=== PATIENT | male | born 1980 | race Caucasian/White ===

== ENCOUNTER 2022-11-10 14:15 | Emergency (ER) | payer SELFPAY ==
--- NOTE | ~2022-11-10 | XR_ITS ---
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 Findings: No fracture, subluxation or dislocation. There is soft tissue laceration just lateral to th e radius distally. No foreign body. Impression: 1: No acute bone or joint abnormality. Reviewed, dictated and finalized at location L. R FEEDER Impression: 1: No acute bone or joint abnormality.
[2022-11-10 15:00] VITALS: BP 146/92; PULSE 89; RESP 18; TEMP 36.6; O2SAT 100
--- NOTE | 2022-11-10 15:46 | ED.WOUNDLAC ---
HPI - Wound/Laceration General Chief Complaint: Wound/Laceration Stated Complaint: wrist lac Time Seen by Provider: 11/10/22 15:34 History of Present Illness HPI narrative: 42-year-old male here for evaluation of a laceration sustained to his left wrist about an hour prior to arrival. Patient states that he was cutting a piece of metal with a circular saw when he lost control of the tool and the tool sliced his wrist. He is unsure of his last tetanus shot. He denies any difficulty moving his fingers or his wrist but he does note some numbness and tingling at the base of his thumb. Related Data Allergies Allergy/AdvReac Type Severity Reaction Status Date / Time No Known Allergies Allergy Unverified 01/09/15 08:41 Review of Systems Review of Systems: Gen: Denies fevers or chills Eyes: Denies eye pain or visual change ENT: Denies congestion Respiratory: Denies shortness of breath or cough CV: Denies chest pain or palpitations GI: Denies abdominal pain nausea, emesis or diarrhea : denies burning, urgency, frequency or hematuria Musculoskeletal: Denies back pain or muscle pain Neuro: Denies numbness, tingling, weakness or focal weakness Skin: Reports laceration to wrist. Except as documented, all other systems reviewed and negative Exam Narrative: APPEARANCE: Well appearing, no pain in distress, well-nourished. Head: Normocephalic and atraumatic. EYES: PERRLA/EOMI, conjunctivae clear NOSE: No nasal drainage EARS: External ear normal in appearance THROAT: Oropharynx is clear. Mucous membranes are moist. NECK: Supple. No adenopathy, no masses. RESPIRATORY: Airway patent, respirations nonlabored. Clear to auscultation bilaterally, no rales, rhonchi, wheezing. CARDIOVASCULAR: 2+ radial pulses. Regular rate and rhythm without murmurs, rubs, or gallops. ABDOMINAL: Normoactive bowel sounds. Soft, nontender, nondistended. No rebound tenderness or guarding. MUSCULOSKELETAL: He has full range of motion in his thumbs and his fingers. He has brisk capillary refill. He has decreased sensation to the thenar eminence and reports decreased sensation to the tissue surrounding the laceration. NEURO: Normal speech. No focal neurologic deficits. SKIN: Patient has a 2 cm irregular laceration to the anterior aspect of his left wrist with no active bleeding. There is black debris noted around the wound PSYCHIATRIC: Normal affect/mood.. Course Vital Signs Vital signs: Vital Signs Temperature 98 F 11/10/22 15:00 Pulse Rate 89 11/10/22 15:00 Respiratory Rate 18 11/10/22 15:00 Blood Pressure 146/92 H 11/10/22 15:00 Pulse Oximetry 100 11/10/22 15:00 Oxygen Delivery Room Air 11/10/22 15:00 Temperature 98 F 11/10/22 15:00 Pulse Rate 89 11/10/22 15:00 Respiratory Rate 18 11/10/22 15:00 Blood Pressure 146/92 H 11/10/22 15:00 Pulse Oximetry 100 11/10/22 15:00 Oxygen Delivery Room Air 11/10/22 15:00 Procedures Laceration Laceration 1: Date: 11/10/22 Time: 17:24 Site: upper extremity Side (If applicable): left Size (cm): 2 Description: irregular and contaminated Depth: simple, single layer Local Anesthetic: lidocaine 1% Amount of anesthesia used (mL): 2 Pre-repair: wound explored, irrigated, irrigated extensively and minor debridement ====== Skin Level ====== Skin layer closed with: nylon (4-o) Number of sutures: 5 Technique: simple, interrupted ====== Subcutaneous Layer ====== ====== Muscle Layer ====== ====== Tendon Layer ====== MDM - Wound/Laceration MDM Narrative Medical decision making narrative: Patient is a 42-year-old male here for evaluation of a laceration sustained to his right wrist from a circular saw prior to arrival. He has intact range of motion in his fingers but does report decreased sensation around his thenar eminence. He has brisk capillary refill and strong radial puls
[2022-11-10] MEDS: HYDROcodone/acetaminophen (*CRX) 5-325 MG TABLET 1 TAB PO (15:58)
[2022-11-10] MEDS: TETANUS,DIPHTHERIA,AC PERTUSSIS ADULT (0.5 ML) BOOSTRIX IM (17:02)
== END 2022-11-10 17:33 | disposition home or self-care (01) ==
PROVIDERS: Emergency Provider Physician Assistant
DX: S61.512A Laceration without foreign body of left wrist, initial encounter (principal); W27.0XXA Contact with workbench tool, initial encounter; Z23 Encounter for immunization
CPT/HCPCS: 12001; 73110; 90471; 90715; 99283; A9270